=== PATIENT | male | born 1990 ===

== ENCOUNTER 2018-06-04 14:09 | Emergency (ER) | payer OTHER ==
[2018-06-04 14:13] VITALS: TEMP 97.8
--- NOTE | 2018-06-04 14:23 | ED PDOC ---
HPI: Psych/Substance Abuse Time Seen by Provider: 06/04/18 14:14 Chief Complaint (Nursing): Substance Abuse Chief Complaint (Provider): Alcohol Use ED Caveat: Intoxicated History Per: EMS ([facility]ard) History/Exam Limitations: intoxication Additional History Per: Patient Additional Complaint(s): 27 year old male presents to the ED via [facility] for evaluation of substance/alcohol abuse. As per EMS, patient was found sleeping on the streets. Patient admits to drinking 4-5 beers and smoking marijuana prior to arrival. Patient is a poor historian due to his intoxication, but denies any complaints at this time or trauma. PMD: [place] Past Medical History Reviewed: Historical Data, Nursing Documentation, Vital Signs Vital Signs: Last Vital Signs Temp 97.8 F 06/04/18 14:11 Pulse 96 H 06/04/18 14:11 Resp 16 06/04/18 14:11 BP 132/84 06/04/18 14:11 Pulse Ox 99 06/04/18 14:11 - Medical History PMH: No Chronic Diseases - Surgical History Surgical History: No Surg Hx - Family History Family History: States: Unknown Family Hx - Social History Current smoker - smoking cessation education provided: No Alcohol: Social Drugs: Cannabis - Allergies Allergies/Adverse Reactions: Allergies Allergy/AdvReac Type Severity Reaction Status Date / Time No Known Allergies Allergy Verified 06/04/18 14:12 Review of Systems ROS Statement: Except As Marked, All Systems Reviewed And Found Negative Psych: Positive for: Other (alcohol intoxication and marijuana abuse) Physical Exam - Reviewed Nursing Documentation Reviewed: Yes Vital Signs Reviewed: Yes - Physical Exam Comments: GENERAL APPEARANCE: Patient is intoxicated, somnolent, in no acute distress, resting comfortably. Gait unsteady. SKIN: Warm, dry; (-) cyanosis HEAD: (-) scalp swelling, (-) scalp tenderness. EYES: (+) bilateral conjunctival injection, (-) scleral icterus, (-) nystagmus. ENMT: Mucous membranes moist. Airway patent: (-) stridor. NECK: Supple, FROM HEART AND CARDIOVASCULAR: (-) irregularity; (-) murmur CHEST AND RESPIRATORY: (-) rales, (-) rhonchi, (-) wheezes; breath sounds equal. Respirations even and nonlabored. ABDOMEN: Soft, (-) distention, (-) tenderness, (-) guarding. NEURO AND PSYCH: Mental status as above. 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 Pupils equal and reactive; EOMI; (-) facial asymmetry - ECG O2 Sat by Pulse Oximetry: 99 (RA) Pulse Ox Interpretation: Normal Medical Decision Making Medical Decision Making: Time: 1414 Initial Impression: alcohol intoxication Initial Plan: --Alcohol serum --Accucheck --Re-evaluation, clinical sobriety 1443 Accucheck: 94 1500 Alcohol Serum: 285 Patient sleeping comfortably on re-evaluation. No distress noted. 1630 Patient sleeping comfortably. 1800 Patient ambulating in ED with steady, unassisted gait and is requesting a food tray at this time. Patient has no complaints at present. On re-evaluation, patient reports improvement of symptoms. On exam, patient now AAOx3, in no acute distress. On exam, neck is supple, lungs CTA, cardiac RRR, abdomen is soft and non-tender, neuro exam shows no focal findings. VSS, stable for discharge. Diagnostic results d/w the patient in great detail. Dx of alcohol intoxication d /w the patient. Based on history, exam and diagnostic results plan will be for discharge. Advised to follow up with primary care physician in 1-2 days without fail. Return to the emergency room at any time for any new or worsening symptoms. Patient states he fully agrees with and understands discharge instructions. States that he agrees with the plan and disposition. Verbalized and repeated discharge instructions and plan. I have given the patient opportunity to ask any additional questions. Scribe Attestation: Documented by Josee Willingham, acting as a scribe for Ynes Maddox PA-C. Provider Scribe Attestation: All medical record entries made by the Scribe were at my direction and personally dictated by me. I have reviewed the chart and agree that the record accurately reflects my personal performance of the history, physical exam, medical decision making, and the department course for this patient. I have also personally directed, reviewed, and agree with the discharge instructions and disposition. Disposition - Clinical Impression Clinical Impression: Alcohol intoxication - Patient ED Disposition Is Patient to be Admitted: No Counseled Patient/Family Regarding: Studies Performed, Diagnosis, Need For Followup - Disposition Referrals: FAMILY PROVIDER,NO [Family Provider] - Disposition: Routine/Home Disposition Time: 18:07 Condition: IMPROVED Additional Instructions: FOLLOW UP WITH PMD IN 1-2 DAYS WITHOUT FAIL. RETURN TO ED WITH ANY NEW OR WORSENING SYMPTOMS. Instructions: Alcohol Use - When Is Drinking a Problem?, Effects of Alcohol on Your Health Forms: [facility] (Central African) Print Language: NEPALI - POA Present On Arrival: None Results - Lab Results Lab Results: 06/04/18 14:30 Alcohol, Quantitative 285 H
[2018-06-04 18:15] VITALS: BP 129/71; PULSE 82; RESP 15
[2018-06-04 19:46] VITALS: O2SAT 99
== END 2018-06-04 18:16 | disposition home or self-care (01) ==
LOC: EDBD 14:09 → H.ER 14:09
DX: F10.129 Alcohol abuse with intoxication, unspecified (principal); F12.90 Cannabis use, unspecified, uncomplicated